=== PATIENT | male | born 1985 | race Caucasian/White ===

== ENCOUNTER 2018-07-13 16:11 | Emergency (ER) | payer MEDICAID ==
[~2018-07-13] VITALS: Ht 177.8 cm; Wt 99.8 kg
[2018-07-13 16:18] VITALS: BP 117/93
[2018-07-13] MEDS ORDERED: IBUPROFEN 600 MG TAB PO ONE (17:00)
[2018-07-13] MEDS ORDERED: BACITRACIN OINT 500 UNITS/GM PKT TP ONE ×2 (17:00→17:05)
[2018-07-13 17:32] VITALS: BP 115/89
== END 2018-07-13 17:32 ==
LOC: MED 16:11
DX: S50.311A Abrasion of right elbow, initial encounter (principal); S60.511A Abrasion of right hand, initial encounter; F15.10 Other stimulant abuse, uncomplicated; W18.39XA Other fall on same level, initial encounter; Y93.89 Activity, other specified; Y92.89 Other specified places as the place of occurrence of the external cause; Y99.8 Other external cause status
CPT/HCPCS: 99283